=== PATIENT | male | born 1985 | race Caucasian/White ===

== ENCOUNTER 2016-09-30 16:35 | Emergency (ER) | payer MEDICAID, OTHER ==
[~2016-09-30] VITALS: Ht 157.5 cm; Wt 82.0 kg
[2016-09-30] MEDS ORDERED: TETANUS, DIPHTHERIA, PERTUSSIS VAC/PF 0.5ML (>7YR OLD) IM ONE (20:30)
[2016-09-30] MEDS ORDERED: LIDOCAINE HCL 1% 20ML VIAL (Pyxis) INJ MC ONE (20:30)
[2016-09-30] MEDS ORDERED: BACITRACIN ZINC OINT UDPKT TOP ONE (20:30)
[2016-09-30] MEDS ORDERED: KETOROLAC 30MG/ML VIAL IM ONE (20:30)
[2016-09-30 22:55] VITALS: BP 107/63
== END 2016-09-30 23:10 | disposition home or self-care (01) ==
LOC: ER 18:38
DX: S61.215A Laceration without foreign body of left ring finger without damage to nail, initial encounter (principal); W26.0XXA Contact with knife, initial encounter; Y93.89 Activity, other specified; Y92.89 Other specified places as the place of occurrence of the external cause; F17.210 Nicotine dependence, cigarettes, uncomplicated
CPT/HCPCS: 12002; 73130; 90471; 90715; 96372; 99284; J1885; J3490; X7700; Z7610